=== PATIENT | male | born 1990 | race African-American/Black ===

== ENCOUNTER 2016-10-25 10:46 | Inpatient (IN) | payer SELFPAY ==
[~2016-10-25] VITALS: Ht 180.3 cm; Wt 83.3 kg
[2016-10-25] MEDS ORDERED: SODIUM CHLORIDE 0.9% 250 ML IV ONE ×2 (11:09→16:06)
[2016-10-25] MEDS ORDERED: SODIUM CHLORIDE 0.9% 1,000 ML IV ONE ×4 (11:09→23:00)
[2016-10-25 13:06] LABS: Basophils # (auto) 0 uL; Basophils % (auto) 0.1 % (0.0-2.0); Eosinophils # (auto) 0 uL; Hematocrit 49.2 % (41.0-53.0); Hemoglobin 16.3 g/dL (13.5-17.5); Lymphocytes # (auto) 0.6 uL; Lymphocytes % (auto) 4.2 % (10.0-50.0); Mean Corpuscular Hemoglobin 29.2 pg (28.0-32.0); Mean Corpuscular Hgb Conc. 33.1 g/dL (32.0-36.0); Mean Corpuscular Volume 88.3 fL (80.0-100.0); Mean Platelet Volume 8.4 fL (7.4-10.4); Monocytes # (auto) 0.9 uL; Monocytes % (auto) 6.5 % (0.0-12.0); Neutrophils # (auto) 12.9 uL; Neutrophils % (auto) 89.2 % (37.0-80.0); Platelet Count (auto) 218 10^3/uL (140-450); Red Cell Distribution Width 12.6 % (11.6-16.0); White Blood Cell 14.5 10^3/uL (4.4-10.8)
[2016-10-25 13:09] LABS: Urine Bilirubin Negative (Negative); Urine Blood TRACE /uL (Negative); Urine Color Yellow (Yellow); Urine Glucose Normal (Normal); Urine Hyaline Cast FEW /lpf (0 - 2); Urine Ketone Negative (Negative); Urine Mucus FEW (None Seen); Urine Nitrite Negative (Negative); Urine RBC 6 /hpf (0 - 3); Urine Squamous Epithelial Cell FEW /hpf (<5); Urine Urobilinogen Normal (Negative)
[2016-10-25 13:26] LABS: Albumin 4.6 g/dL (3.4-5.0); Alkaline Phosphatase 71 U/L (45-117); Anion Gap 11 (5-15); Aspartate Aminotransferase 35 U/L (15-37); BUN/Creatinine Ratio 10.9; Bilirubin, Total 0.7 mg/dL (0.2-1.0); Blood Urea Nitrogen 12 mg/dL (7-18); Carbon Dioxide 23 mmol/L (21-32); Chloride 109 mmol/L (98-107); GFR African American 103 mL/min; GFR Non-African American 85 mL/min; Glucose 90 mg/dL (74-106); Potassium 3.5 mmol/L (3.5-5.1); Sodium 143 mmol/L (136-145)
[2016-10-25 13:39] LABS: Acetaminophen < 2.0 ug/mL (10-30); Salicylate < 1.7 mg/dL (2.8-20.0)
[2016-10-25] MEDS ORDERED: LORazepam 2MG/ML-1ML VIAL IV ONE (14:30)
[2016-10-25] MEDS ORDERED: DIAZEPAM 5 MG/ML 2ML SYRG IV ONE ×6 (15:00→22:15)
[2016-10-25] MEDS ORDERED: diphenhdrAMINE HCL 50 MG/1 ML VL IV ONE (15:30)
[2016-10-25] MEDS ORDERED: cefTRIAXone 1GM/50ML D5W 50 ML IV ONE (16:15)
[2016-10-25] MEDS ORDERED: HALOPERIDOL LACTATE 5 MG/ML INJ VIAL IM ONE (16:15)
[2016-10-25 19:16] LABS: REFLEX LACTIC ACID YES OR NO YES
[2016-10-25] MEDS ORDERED: LORazepam 2MG/ML-1ML VIAL IV PRN (23:00)
[2016-10-25] MEDS ORDERED: HALOPERIDOL LACTATE 5 MG/ML INJ VIAL IM PRN (23:00)
[2016-10-26] MEDS ORDERED: SODIUM CHLORIDE 0.9% 1,000 ML IV ONE ×2 (04:30→05:30)
[2016-10-26] MEDS: SODIUM CHLORIDE 0.9% 1,000 ML IV SCH ×3 (06:21→22:15)
[2016-10-26 06:24] LABS: Basophils # (auto) 0 uL; Basophils % (auto) 0.4 % (0.0-2.0); Eosinophils # (auto) 0 uL; Eosinophils % (auto) 0.5 % (0.0-7.0); Hematocrit 35.8 % (41.0-53.0); Hemoglobin 11.8 g/dL (13.5-17.5); Lymphocytes # (auto) 1.7 uL; Lymphocytes % (auto) 21.3 % (10.0-50.0); Mean Corpuscular Hemoglobin 29.5 pg (28.0-32.0); Mean Corpuscular Hgb Conc. 32.8 g/dL (32.0-36.0); Mean Corpuscular Volume 89.7 fL (80.0-100.0); Mean Platelet Volume 8.6 fL (7.4-10.4); Monocytes # (auto) 0.5 uL; Monocytes % (auto) 6.5 % (0.0-12.0); Neutrophils # (auto) 5.6 uL; Neutrophils % (auto) 71.3 % (37.0-80.0); Platelet Count (auto) 156 10^3/uL (140-450); Red Cell Distribution Width 12.7 % (11.6-16.0); White Blood Cell 7.9 10^3/uL (4.4-10.8)
[2016-10-26 06:40] LABS: Potassium 3.6 mmol/L (3.5-5.1)
[2016-10-26 06:47] LABS: Albumin 3.2 g/dL (3.4-5.0); BUN/Creatinine Ratio 8.8; Calcium 7.2 mg/dL (8.5-10.1)
[2016-10-26 06:49] LABS: Total Protein 5.2 g/dL (6.4-8.2)
[2016-10-26 07:04] LABS: Bilirubin, Total 0.8 mg/dL (0.2-1.0)
[2016-10-26] MEDS: cefTRIAXone 1GM/50ML D5W 50 ML IV SCH (09:30)
[2016-10-26 20:00] VITALS: BP 134/80
[2016-10-26 22:00] VITALS: BP 134/80
[2016-10-27] MEDS: SODIUM CHLORIDE 0.9% 1,000 ML IV SCH ×2 (03:42→06:15)
[2016-10-27 05:00] VITALS: BP 121/70
[2016-10-27 06:59] LABS: BUN/Creatinine Ratio 6.1; Calcium 8.5 mg/dL (8.5-10.1); Magnesium 1.8 mg/dL (1.6-2.6); Potassium 3.6 mmol/L (3.5-5.1)
[2016-10-27] MEDS: cefTRIAXone 1GM/50ML D5W 50 ML IV SCH (09:00)
[2016-10-27 14:29] VITALS: BP 122/78
== END 2016-10-27 15:36 | DRG 917 ==
LOC: ER 10:46 → TELE 10:47 → TELE-WESTW 10-26 19:31
PROVIDERS: ADMIT Family Medicine; ATTEND Internal Medicine
DX: T45.0X2A Poisoning by antiallergic and antiemetic drugs, intentional self-harm, initial encounter (principal); G92 Toxic encephalopathy; M62.82 Rhabdomyolysis; R45.851 Suicidal ideations; F32.9 Major depressive disorder, single episode, unspecified; J45.909 Unspecified asthma, uncomplicated; E86.0 Dehydration; F41.9 Anxiety disorder, unspecified; Y92.89 Other specified places as the place of occurrence of the external cause
CPT/HCPCS: 36415; 70450; 71010; 80048; 80053; 80320; 80329; 81001; 82550; 83605; 83735; 85025; 87040; 93005; 94761; 96361; 96365; 96372; 96375; 96376; G0434; J0696